=== PATIENT | male | born 1945 | race Caucasian/White ===

== ENCOUNTER 2020-02-02 12:42 | Emergency (ER) | payer OTHER ==
[~2020-02-02] VITALS: Ht 170.2 cm; Wt 97.5 kg
[~2020-02-02 12:42] MED LIST: COZAAR 25 MG TA25 M1 PO; [UNRECOGNIZED DRUG - REMARK]
[2020-02-02 13:14] LABS: BASOPHILS 0.4 % (0.0-2.0); EOSINOPHILS 0.3 % (0.0-3.0); HEMATOCRIT 43.6 % (42.0-52.0); HEMOGLOBIN 15.1 gm/dL (14.0-18.0); LYMPHOCYTES 11.1 % (24.0-44.0); MCH 35.2 pg (26.0-34.0); MCHC 34.6 g/dL (28.0-37.0); MCV 101.9 fL (80.0-100.0); MONOCYTES 7.8 % (1.0-8.0); PLATELET COUNT 157 thou/uL (150-400); POLYS 80.4 % (36.0-66.0); RBC 4.28 mil/uL (4.50-6.00); RDW 12.9 % (10.5-14.5); WBC 6.2 thou/uL (4.0-11.0)
[2020-02-02 13:22] LABS: CALCIUM 9.5 mg/dL (8.5-10.1); POTASSIUM 3.9 mmol/L (3.5-5.1)
[2020-02-02] MEDS ORDERED: ONDANSETRON ODT4 MG PO (13:56)
[2020-02-02 14:03] VITALS: BP 140/69
== END 2020-02-02 14:03 ==
LOC: ER 12:42
PROVIDERS: Emergency Medicine
DX: K92.0 Hematemesis (principal); M54.42 Lumbago with sciatica, left side; I10 Essential (primary) hypertension; Z88.0 Allergy status to penicillin; Z88.6 Allergy status to analgesic agent

== ENCOUNTER 2021-08-23 08:27 | Emergency (ER) | payer OTHER, MEDICARE ==
[~2021-08-23] VITALS: Ht 170.2 cm; Wt 99.8 kg
[~2021-08-23 08:27] MED LIST changes: +ONDANSETRON ODT4 MG PO
[2021-08-23] MEDS ORDERED: LOSARTAN POTASS50 MG PO (08:35)
[2021-08-23] MEDS ORDERED: OMEPRAZOLE 20 M20 M1 PO (08:35)
[2021-08-23] MEDS ORDERED: NEURONTIN 300M300 M2 PO (08:36)
[2021-08-23 09:05] LABS: ABSOLUTE NEUTROPHILS 3.7 thou/uL (1.4-8.2); BASOPHILS 0.8 % (0.0-2.0); EOSINOPHILS 0.7 % (0.0-3.0); HEMATOCRIT 37.5 % (42.0-52.0); HEMOGLOBIN 12.7 gm/dL (14.0-18.0); LYMPHOCYTES 12.5 % (24.0-44.0); MCHC 33.9 g/dL (28.0-37.0); MCV 103.1 fL (80.0-100.0); MONOCYTES 9.9 % (1.0-8.0); PLATELET COUNT 145 thou/uL (150-400); POLYS 76.1 % (36.0-66.0); RBC 3.64 mil/uL (4.50-6.00); RDW 14.5 % (10.5-14.5); WBC 4.9 thou/uL (4.0-11.0)
[2021-08-23 09:22] LABS: CALCIUM 9.2 mg/dL (8.5-10.1); CREATININE 0.8 mg/dL (0.7-1.3)
[2021-08-23 09:33] LABS: MAGNESIUM 1.4 mg/dL (1.8-2.4); TOTAL BILIRUBIN 1.5 mg/dL (0.2-1.0); TOTAL PROTEIN 7.9 g/dL (6.4-8.2)
[2021-08-23 12:21] VITALS: BP 178/88
--- NOTE | 2021-08-23 15:26 | EKG ---
[address] [address] ELECTROCARDIOGRAM REPORT Name: ELIZABETH LOPES Room #: REG [facility]#: [id number] Admission: 08/23/21 Attend Phys: Discharge: Date of : 49 Report #: [id number] ED Test Date: 2021-08-23 Test Time: 08:35:35 Pat Name: ELIZABETH LOPES Department: Room: Gender: M [employer] Buyer: JUAN : 1945 Requested By: Efrem Pereyra Order Number: [id number] MD: Raymond Levy Measurements Intervals [place] Rate: 78 P: 90 UT: 155 QRS: -73 QRSD: 89 T: 11 QT: 411 QTc: 469 Interpretive Statements Sinus rhythm Inferior infarct, old Anterior infarct, age indeterminate No previous ECG available for comparison Electronically Signed On 08-23-2021 15:26:03 CDT by Raymond Levy [email or web address] <ELECTRONICALLY SIGNED> By: Raymond Levy MD, [facility] 08/23/21 1526 0835 0835 Raymond Levy MD, FACC /EPI
== END 2021-08-23 12:21 | disposition home or self-care (01) ==
LOC: ER 08:27
PROVIDERS: Emergency Medicine
DX: R05.9 Cough, unspecified (principal); Z20.822 Contact with and (suspected) exposure to COVID-19; F10.20 Alcohol dependence, uncomplicated; I10 Essential (primary) hypertension; Z79.899 Other long term (current) drug therapy; Z88.6 Allergy status to analgesic agent; Z88.0 Allergy status to penicillin